=== PATIENT | male | born 1970 | race Caucasian/White ===

== ENCOUNTER 2019-11-24 12:49 | Emergency (ER) | payer SELFPAY ==
[2019-11-24] MEDS ORDERED: ASPIRIN 81 MG TABLET, CHEWABLE PO ONE (13:33)
--- NOTE | 2019-11-24 13:37 | ER Document Report ---
ED Medical Screen (RME) - General Chief Complaint: Chest Tightness Stated Complaint: DIZZY Time Seen by Provider: 11/24/19 13:28 Mode of Arrival: Ambulatory Information source: Patient Notes: 49-year-old presents to ED for complaint of chest tightness dizziness. He states he ran out of his blood pressure medicine and his primary care would not refill it because he had not been to see them in over 2 years. He states that now the blood pressure is getting higher now he started to have chest tightness and dizziness. He is alert oriented respirations regular nonlabored at this time. He states his blood pressure at home was 168/102. States he cannot afford the visit charge at his primary care so I gave him the name for [facility], [facility], and [facility] so that he could evaluate discharge there. I have greeted and performed a rapid initial assessment of this patient. A comprehensive ED assessment and evaluation of the patient, analysis of test results and completion of medical decision making process will be conducted by an additional ED providers. - Related Data Allergies/Adverse Reactions: No Known Allergies Allergy (Unverified 11/24/19 13:27) Home Medications: Lisinopril, metoprolol Physical Exam - Vital signs Vitals: Temp Pulse Resp BP Pulse Ox 98.3 F 96 16 141/97 H 95 11/24/19 12:52 11/24/19 12:52 11/24/19 12:52 11/24/19 12:52 11/24/19 12:52 Course - Vital Signs Vital signs: Temp Pulse Resp BP Pulse Ox 98.3 F 96 16 141/97 H 95 11/24/19 12:52 11/24/19 12:52 11/24/19 12:52 11/24/19 12:52 11/24/19 12:52
[2019-11-24 13:59] LABS: ABSOLUTE BASOPHILS # (AUTO) 0.1 10^3/uL (0.0-0.2); ABSOLUTE EOSINOPHILS # (AUTO) 0.1 10^3/uL (0.0-0.6); ABSOLUTE LYMPHOCYTES (AUTO) 1.6 10^3/uL (0.5-4.7); ABSOLUTE MONOCYTES (AUTO) 0.7 10^3/uL (0.1-1.4); ABSOLUTE NEUT (AUTO) 2.8 10^3/uL (1.7-8.2); BASOPHILS % (AUTO) 1.2 % (0-2); EOSINOPHILS % (AUTO) 2.2 % (0-6); HEMATOCRIT 49.7 % (37.9-51.0); HEMOGLOBIN 17.8 g/dL (13.5-17.0); LYMPHOCYTES % (AUTO) 31.3 % (13-45); MEAN CORPUSCULAR HEMOGLOBIN 35.7 pg (27.0-33.4); MEAN CORPUSCULAR HGB CONC 35.8 g/dL (32.0-36.0); MEAN CORPUSCULAR VOLUME 100 fl (80-97); MONOCYTES % (AUTO) 12.5 % (3-13); PLATELET COUNT 248 10^3/uL (150-450); RED BLOOD COUNT 4.98 10^6/uL (4.35-5.55); RED CELL DISTRIBUTION WIDTH 12.5 % (11.5-14.0); SEGMENTED NEUTROPHILS % (AUTO) 52.8 % (42-78); TOTAL CELLS COUNTED % (AUTO) 100 %; WHITE BLOOD COUNT 5.2 10^3/uL (4.0-10.5)
[2019-11-24 14:08] LABS: ALKALINE PHOSPHATASE 79 U/L (38-126); ANION GAP 6 (5-19); ASPARTATE AMINO TRANSFERASE 40 U/L (17-59); BILIRUBIN,TOTAL 0.8 mg/dL (0.2-1.3); BLOOD UREA NITROGEN 8 mg/dL (7-20); CALCIUM 9.9 mg/dL (8.4-10.2); CARBON DIOXIDE 29 mmol/L (22-30); CHLORIDE 104 mmol/L (98-107); CREATINE KINASE 76 U/L (55-170); GLUCOSE 100 mg/dL (75-110); POTASSIUM 4.7 mmol/L (3.6-5.0)
--- NOTE | 2019-11-24 14:14 | RADIOLOGY REPORT (SQ) ---
EXAM DESCRIPTION: CHEST 2 VIEWS IMAGES COMPLETED DATE/TIME: 11/24/2019 1:57 pm REASON FOR STUDY: chest tightness COMPARISON: None. EXAM PARAMETERS: NUMBER OF VIEWS: two views TECHNIQUE: Digital Frontal and Lateral radiographic views of the chest acquired. RADIATION DOSE: NA LIMITATIONS: none FINDINGS: LUNGS AND PLEURA: No opacities, masses or pneumothorax. No pleural effusion. MEDIASTINUM AND HILAR STRUCTURES: No masses or contour abnormalities. HEART AND VASCULAR STRUCTURES: Heart normal size. No evidence for failure. BONES: No acute findings. HARDWARE: None in the chest. OTHER: No other significant finding. IMPRESSION: NO ACUTE RADIOGRAPHIC FINDING IN THE CHEST. TECHNICAL DOCUMENTATION: JOB ID: [id number] 2010 [employer]- All Rights Reserved Reading location - IP/workstation name: [email or web address]
[2019-11-24] MEDS ORDERED: METOPROLOL SUCCINATE 50 MG TAB.SR.24H PO ONE (16:05)
--- NOTE | 2019-11-24 16:12 | ER Document Report ---
ED General - General Chief Complaint: Chest Tightness Stated Complaint: DIZZY Time Seen by Provider: 11/24/19 13:28 Mode of Arrival: Ambulatory - HPI Notes: Chief complaint: Dizziness, elevated blood pressure and intermittent chest tightness History of present illness: 49-year-old male with longstanding history of hypertension states he does not have a regular physician has not seen anyone for follow-up care in nearly 2 years. [facility] recently he was on lisinopril 10 mg a day and metoprolol XL 50 mg a day. He ran out of these medications about a week ago. He says he has been feeling jittery and shaky and intermittently is having fleeting sensations of tightness in his chest. He says he has a past history of panic attacks and notes that he had similar symptoms in the past when he would experience panic episodes. He is a pack per day smoker. He also consumes about 7 ounces of alcohol every night. He says that his intake has been increased recently because of need to control his panic symptoms. Family history is negative for CAD. Patient is not diabetic. He has no history of hyperlipidemia. He has no known history of CAD or thromboembolic disease. HEART Score: HISTORY 0 ECG 0 AGE 2 RISK FACTORS 1 TROPONIN 0 TOTAL: 2 If HEART score is = 3 AND both tronponin measurments are normal, the 30 day risk of a major adverse cardiac event (all-cause mortality, myocardia infarction or need for coronary revscularization) is < 1% (Sensitivity 100%, NPV 100%). - Related Data Allergies/Adverse Reactions: No Known Allergies Allergy (Unverified 11/24/19 13:27) Home Medications: Lisinopril, metoprolol Past Medical History - General Information source: Patient - Social History Smoking Status: Current Every Day Smoker Frequency of alcohol use: Heavy Drug Abuse: None Lives with: Family Family History: Hypertension. denies: Hyperlipidemia - Past Medical History Cardiac Medical History: Reports: Hx Hypertension Pulmonary Medical History: Reports: None Neurological Medical History: Reports: None Endocrine Medical History: Denies: Hx Diabetes Mellitus Type 1, Hx Diabetes Mellitus Type 2 Psychiatric Medical History: Reports: Hx Anxiety Past Surgical History: Reports: Hx Orthopedic Surgery - spinal surgery Review of Systems - Review of Systems Notes: Constitutional: Negative for fever. HENT: Negative for sore throat. Eyes: Negative for visual changes. Cardiovascular: As per HPI. Respiratory: Negative for shortness of breath. Gastrointestinal: Negative for abdominal pain, vomiting or diarrhea. Genitourinary: Negative for dysuria. Musculoskeletal: Negative for back pain. Skin: Negative for rash. Neurological: As per HPI. Negative for headaches, weakness or numbness. 10 point ROS negative except as marked above and in HPI. Physical Exam - Vital signs Vitals: Temp Pulse Resp BP Pulse Ox 98.3 F 96 16 141/97 H 95 11/24/19 12:52 11/24/19 12:52 11/24/19 12:52 11/24/19 12:52 11/24/19 12:52 - Notes Notes: GENERAL: Well-developed well-nourished appearing in no acute distress. SKIN: Good turgor no rashes. HEAD: Normocephalic atraumatic. EYES: PERRLA. EOMI. Conjunctivae and sclerae clear. EARS: CANALS AND TMS CLEAR. NOSE: CLEAR. MOUTH: Moist mucosa. Good dentition. No stridor or edema. No drooling. NECK: Supple. No masses or thyromegaly. No adenopathy. Carotids 2+ without bruits. No JVD. BACK: Symmetrical without tenderness. CHEST: Respirations unlabored. Scattered faint wheezes bilaterally. HEART: Regular rhythm. No murmur gallop or rub. ABDOMEN: Soft nontender without masses, organomegaly or rebound. Bowel sounds normally active. No bruits. GENITALIA: Deferred. EXTREMITIES: No edema. No calf tenderness. Cap refill less than 1.5 seconds. Dorsalis pedis and posterior tibial pulses 3+ and symmetrical. NEUROLOGICAL: Mild generalized tremor. GCS 15. Alert and oriented x3. Normal gait. Fluent speech. Cranial nerves II through XII intact. Sensorimotor and cerebellar normal. Normal tone. PSYCHIATRIC: Slightly anxious affect. Course - Re-evaluation Re-evalutation: 11/24/19 16:15 This man is having some withdrawal symptoms from omitting his beta-katherin. I explained to him that we need to get him back on medication. I have given him 50 mg of extended release metoprolol here and will rewrite his usual medications. He is strongly advised to stop smoking. I also cautioned him that alcohol intake in excess of 2 ounces per day will potentially have an adverse effect on his hypertension and cardiovascular status. Patient's troponin is normal here. His chest x-ray is normal. I think this man stable for outpatient follow-up with primary care and will be discharged. Findings, clinical impression and plan of treatment have been discussed with patient/family. Understanding of current findings and recommendations has been acknowledged by them and there is agreement regarding disposition and follow-up. - Vital Signs Vital signs: Temp Pulse Resp BP Pulse Ox 98.3 F 91 17 152/100 H 94 11/24/19 12:52 11/24/19 15:42 11/24/19 16:01 11/24/19 16:01 11/24/19 16:01 - Laboratory Result Diagrams: 11/24/19 13:40 11/24/19 13:40 Laboratory results interpreted by me: 11/24/19 13:40 Hgb 17.8 H MCV 100 H MCH 35.7 H - EKG Interpretation by Me Additional EKG results interpreted by me: 11/24/19 16:14 Twelve-lead EKG from 1338 hrs. reviewed contemporaneously by me showing normal sinus rhythm with rate of 84 and a normal QRS axis of +11 degrees. Intervals are normal. There are no acute ST/T wave changes present. We have no old EKG for comparison. Indication for current study: Hypertension. Discharge - Discharge Clinical Impression: Essential hypertension, Beta-katherin withdrawal, Cigarette smoker, Alcohol abuse Condition: Stable Disposition: HOME, SELF-CARE Additional Instructions: Stop smoking. Reduce your intake of alcohol as discussed. Take prescribed medications. Follow-up with referral physician within the next 3 to 5 days. Return here as needed for new or worsening symptoms: Pain that is worsening or unimproved Uncontrolled vomiting High fever or shaking chills Overall worsening Prescriptions: Lisinopril [Prinivil 10 mg Tablet] 10 mg PO DAILY #30 tablet Metoprolol Succinate [Toprol Xl 50 mg Tab.sr] 50 mg PO DAILY 30 Days #30 tab.sr.24h Referrals: [facility] [Provider Group] - Follow up as needed
[2019-11-24 16:50] VITALS: BP 149/99
--- NOTE | 2019-11-24 18:25 | EKG REPORT ---
SEVERITY:- NORMAL ECG - SINUS RHYTHM : Confirmed by: George Ayala MD 24-Nov-2019 18:23:55
== END 2019-11-24 16:51 | disposition home or self-care (01) ==
LOC: ER 12:49
DX: I10 Essential (primary) hypertension (principal); F19.239 Other psychoactive substance dependence with withdrawal, unspecified; F10.10 Alcohol abuse, uncomplicated; R07.89 Other chest pain; R42 Dizziness and giddiness; F17.210 Nicotine dependence, cigarettes, uncomplicated
CPT/HCPCS: 36415; 71046; 80053; 82550; 83735; 84484; 85025; 93005; 93010; 99284